=== PATIENT | male | born 1995 | race Hispanic/Latino ===

== ENCOUNTER 2019-08-12 17:11 | Emergency (ER) | payer OTHER ==
[~2019-08-12] VITALS: Ht 182.9 cm; Wt 65.9 kg
--- NOTE | 2019-08-12 17:24 | NUR ---
Urine cx obtained and urine sent to the lab across the street for GC/Chlamydia.
[2019-08-12] MEDS ORDERED: NAPROXEN250 MG PO (17:28)
--- NOTE | 2019-08-12 18:05 | NUR ---
Ultrasound here for exam
--- NOTE | 2019-08-12 19:03 | NUR ---
Report to JOSE J Celestin
--- NOTE | 2019-08-12 19:25 | NUR ---
MD DISCUSSED WITH PT THE RADIOLOGIST REQUEST TO REPEAT US.
--- NOTE | 2019-08-12 19:58 | NUR ---
[employer] COMPLETED 2ND US.
--- NOTE | 2019-08-12 20:12 | Diagnostic Imaging Report ---
EXAM: Scrotal Ultrasound with Duplex INDICATION: pain COMPARISON: None TECHNIQUE: Transverse and longitudinal images were obtained of the scrotum with grayscale imaging, color Doppler and spectral waveform analysis. FINDINGS: Right testis: Size: 3.4 x 3.0 x 3.4 cm, normal in size. Echogenicity: Normal Mass/Cysts: None Left testis: Size: 3.0 x 3.4 x 3.0 cm, normal in size. Echogenicity: Normal Mass/Cysts: None Epididymis: Appearance: Normal in size without increased vascularity. Mass/Cysts: None Extratesticular: Masses: None Hydrocele: Trace bilateral hydroceles. Varicocele: Present of the left Doppler: Normal arterial flow to both testes and symmetrical flow on color Doppler evaluation is seen. No evidence of testicular torsion. IMPRESSION: 1. No evidence of testicular torsion. 2. Left varicocele. 3. Trace bilateral hydroceles. Signed by: Kevin Candelaria MD on 08/12/2019 8:08 PM
[2019-08-12 20:25] VITALS: BP 132/89
== END 2019-08-12 20:25 | disposition home or self-care (01) ==
LOC: FSED 17:11
DX: N50.812 Left testicular pain (principal); N50.89 Other specified disorders of the male genital organs
CPT/HCPCS: 76870; 81003; 87086; 87491; 87591; 99283

== ENCOUNTER → 2020-02-15 | Outpatient (CLI) | payer OTHER ==
[~2020-02-15] MED LIST: GADOBENATE DIMEGLUMINE 1 ML IV ONE; NAPROXEN250 MG PO
--- NOTE | 2020-02-15 10:11 | Diagnostic Imaging Report ---
Examination: MRI BRAIN WOW CONTRAST History: ^CHRONIC INTRACTABLE HEADACHE Comparison studies: None Technique: Pre-contrast: Sagittal T2; axial T1, GRE or SWI, DWI, T2 FLAIR Post-contrast: axial, sagittal and coronal T1. Intravenous contrast: 14 mL MultiHance. Findings: Scalp: No abnormal signal. No masses. Bone marrow: Normal in signal intensity. Brain volume: Adequate for age. No volume loss. Ventricles: Normal in size and configuration. No hydrocephalus. Parenchyma: No abnormal signal intensities. No masses, hemorrhage, acute or chronic vascular insults. Extra-axial spaces: No lesion, fluid collection or hematoma. Enhancement: No abnormal enhancement. Suprasellar and sellar region: No abnormalities. Craniocervical junction: No abnormalities. The foramen magnum is patent. No Chiari malformations. Vessels: Normal flow-voids in the arteries and sinuses. Additional findings:None. IMPRESSION: No intracranial abnormalities. Signed by: Dr. Melani Norton M.D. on 02/15/2020 10:08 AM
== END ==
LOC: MRI 08:30
PROVIDERS: ATTEND Family Medicine
DX: R51.9 Headache, unspecified (principal)
CPT/HCPCS: 70553

== ENCOUNTER 2022-09-24 22:25 | Emergency (ER) | payer OTHER, BC ==
[~2022-09-24] VITALS: Ht 182.9 cm; Wt 65.8 kg
[~2022-09-24 22:25] MED LIST changes: -GADOBENATE DIMEGLUMINE 1 ML IV ONE
[2022-09-24] MEDS ORDERED: TRAMADOL HCL 50 MG TAB PO STA ×2 (22:37→23:01)
[2022-09-25] MEDS ORDERED: ULTRAM 50MG50 MG PO (00:07)
[2022-09-25 00:13] VITALS: BP 114/79; PULSE 65; RESP 16; TEMP 98.1; O2SAT 100
== END 2022-09-25 00:11 | disposition home or self-care (01) ==
LOC: ER 22:30
DX: S00.83XA Contusion of other part of head, initial encounter (principal); M54.6 Pain in thoracic spine; M54.50 Low back pain, unspecified; V43.52XA Car driver injured in collision with other type car in traffic accident, initial encounter; Y92.488 Other paved roadways as the place of occurrence of the external cause
CPT/HCPCS: 70450; 72070; 72100; 72125; 99283